=== PATIENT | female | born 1955 ===

== ENCOUNTER 2017-12-14 07:36 | Outpatient (CLI) | payer OTHER ==
[~2017-12-14 07:36] MED LIST: COZAAR100 MG PO; GABAPENTIN600 MG PO; NAPROXEN SODIU550 M1 PO; SYNTHROID75 MCG PO; TOPROL XL50 M1 PO; VOLTAREN100 GM TP
== END 2017-12-14 08:25 | disposition home or self-care (01) ==
LOC: SONOGRAMA 07:36
DX: N60.11 Diffuse cystic mastopathy of right breast (principal); N60.12 Diffuse cystic mastopathy of left breast; N63.21 Unspecified lump in the left breast, upper outer quadrant

== ENCOUNTER → 2018-01-15 | Day surgery (SDC) | payer OTHER | END | disposition home or self-care (01) | LOC: CIR.AMB 05:40 | DX: C50.212 Malignant neoplasm of upper-inner quadrant of left female breast (principal) ==